=== PATIENT | female | born 1980 | race Two or more races ===

== ENCOUNTER 2017-07-19 17:58 | Emergency (ER) | payer OTHER ==
[~2017-07-19] VITALS: Ht 160 cm; Wt 52.6 kg
[~2017-07-19 17:58] MED LIST: ALBUTEROL2.5 MG/3 M IH; LOTRISONE CREAM45 GM TP; SINGULAIR10 MG
== END 2017-07-19 21:02 | disposition home or self-care (01) ==
LOC: ER 17:58
DX: J45.998 Other asthma (principal)

== ENCOUNTER 2018-09-14 21:26 | Emergency (ER) | payer OTHER ==
[~2018-09-14] VITALS: Ht 162.6 cm; Wt 56.7 kg
[2018-09-15] MEDS ORDERED: INTESTINEX680 M1 PO (03:30)
[2018-09-15] MEDS ORDERED: PEPCID AC20 MG PO (03:30)
[2018-09-15] MEDS ORDERED: BACTRIM DS TAB1 EACH PO (03:30)
== END 2018-09-15 04:32 | disposition home or self-care (01) ==
LOC: ER 21:26
DX: K29.70 Gastritis, unspecified, without bleeding (principal); N39.0 Urinary tract infection, site not specified

== ENCOUNTER 2019-04-19 17:11 | Emergency (ER) | payer OTHER ==
[~2019-04-19] VITALS: Ht 162.6 cm; Wt 52.2 kg
[~2019-04-19 17:11] MED LIST changes: +BACTRIM DS TAB1 EACH PO; +INTESTINEX680 M1 PO; +PEPCID AC20 MG PO
[2019-04-19] MEDS ORDERED: INTESTINEX680 M1 PO (21:02)
[2019-04-19] MEDS ORDERED: BACTRIM DS TAB1 EACH PO (21:02)
[2019-04-19] MEDS ORDERED: VENTOLIN HFA18 GM IH (21:05)
[2019-04-19] MEDS ORDERED: SYMBICORT 16010.2 GM IH (21:05)
== END 2019-04-19 21:14 | disposition home or self-care (01) ==
LOC: ER 17:11
DX: L02.01 Cutaneous abscess of face (principal); L02.31 Cutaneous abscess of buttock